=== PATIENT | female | born 1970 | race Caucasian/White ===

== ENCOUNTER 2016-06-30 06:22 | Emergency (ER) | payer BC ==
[2016-06-30] MEDS ORDERED: NS 0.9% 1000 ML* 1,000 ML IV ONE (06:54)
[2016-06-30] MEDS ORDERED: Simethicone TAB* 80 MG TAB.CHEW PO ONE (06:54)
[2016-06-30 07:09] LABS: Hematocrit 44 % (35-47); Hemoglobin 14.6 g/dl (12.0-16.0); Mean Corpuscular HGB Conc 34 g/dl (31-36); Mean Corpuscular Hemoglobin 31 pg (27-31); Mean Corpuscular Volume 91 fL (80-97); Mean Platelet Volume 10 um3 (7.4-10.4); Red Blood Count 4.77 10^6/ul (4.0-5.4); Red Cell Distribution Width 15 % (10.5-15); White Blood Count 5.7 10^3/ul (3.5-10.8)
[2016-06-30 07:20] LABS: BUN/Creatinine Ratio 11.1 (8-20); EGFR African American 98.8 (>60); EGFR Non-African American 76.8 (>60); Globulin 2.6 g/dL (2-4); Potassium 3.5 mmol/L (3.5-5.0); Total Bilirubin 0.8 mg/dL (0.2-1.0); Total Protein 6.6 g/dL (6.4-8.9)
--- NOTE | 2016-06-30 08:01 | ED ---
GI/ HPI - HPI Summary HPI Summary: Gastric bypass pt here w/ concern for dehydration. She had vomiting on Monday and diarrhea on Monday. [place] a little better Monday (tolerating PO's well) so went to work Monday and ate a [employer] rice meal - vomiting again. Has been drinking fluids (ie. sugar-free flavored water, G2, etc) - no nausea at this time. Feeling increased gassiness since sx started. Woke up this morning w / "cotton mouth" and CHOUDHARY. No fever, chills, chest pain, SOB, URI sx. Spoke w/ Dr. Zuluaga, gastric bypass surgeon, who warned pt of dehydration. She is here this morning as she was concerned about her sx upon waking. - History of Current Complaint Chief Complaint: EDAbdPain Time Seen by Provider: 06/30/16 06:42 Stated Complaint: POSS DEHYDRATION/DR SHIRA Hx Obtained From: Patient Pain Intensity: 4 - Additional Pertinent History Primary Care Physician: [id number] - Allergy/Home Medications Allergies/Adverse Reactions: Allergies Allergy/AdvReac Type Severity Reaction Status Date / Time Aspirin Allergy Bleeding Verified 04/19/16 08:51 Lactose Intolerance (GI) Allergy Unknown Verified 04/19/16 08:51 Reaction Details Latex Allergy Rash Verified 04/19/16 08:51 Shellfish Allergy Allergy Anaphylatic Verified 04/19/16 08:51 Shock BANDAIDS Allergy Rash Uncoded 04/19/16 08:51 ENVIRONMENT/SEASONAL HAYFEVER Allergy SNEEZING, Uncoded 04/19/16 08:51 RUNNY NOSE, ITCHY WATERY EYES PMH/Surg Hx/FS Hx/Imm Hx Previously Healthy: Yes Endocrine/Hematology History: Denies: Hx Anticoagulant Therapy, Hx Blood Disorders, Hx Diabetes, Hx Anemia Cardiovascular History: Reports: Hx Coronary Artery Disease - CHOLESTEROL CONTROL WITH MEDS, Hx Hypertension - hasn't needed meds since gastric bypass surgery 03/2016, Hx Peripheral Vascular Disease - VARICOSE VEIN CAUTERIZED- RIGHT LEG- 15+ YEARS AGO Denies: Hx Pacemaker/ICD, Other Cardiovascular Problems/Disorders Respiratory History: Reports: Hx Asthma GI History: Reports: Hx Gastroesophageal Reflux Disease - OCCASIONALLY- NO MEDICATION FOR, Hx Irritable Bowel - NO MEDS Denies: Hx Jaundice, Other GI Disorders History: Denies: Other Problems/Disorders Musculoskeletal History: Reports: Hx Arthritis - DDD-CERVICAL Denies: Other Musculoskeletal History Sensory History: Reports: Hx Contacts or Glasses - GLASSES FOR DRIVING Denies: Hx Hearing Aid Opthamlomology History: Reports: Hx Contacts or Glasses - GLASSES FOR DRIVING Neurological History: Reports: Hx Headaches, Hx Migraine - HX OF R/T DDD CERVICAL Denies: Other Neuro Impairments/Disorders Psychiatric History: Reports: Hx Anxiety - ON MEDICATION FOR, Hx Depression - ON MEDS - Surgical History Surgery Procedure, Year, and Place: 3 GANGLION RIGHT WRIST, 1993, 2003, 2012, [facility], [facility] [facility] [place] [facility] [place] [facility] [place] [facility] [place] Esophageal scope in prep for gastric bypass Hx Anesthesia Reactions: No Infectious Disease History: No Infectious Disease History: Denies: History Other Infectious Disease, Traveled Outside the [place] in Last 30 Days - Family History Known Family History: Positive: Hypertension Negative: Diabetes - Social History Alcohol Use: None - currently Alcohol Amount: h/o SOCIALLY Hx Substance Use: No Substance Use Type: Reports: None Smoking Status (MU): Former Smoker Type: Cigarettes Amount Used/How Often: 1/2 PPD FOR ABOUT 10+ YEARS Length of Time of Smoking/Using Tobacco: 10 YEARS OFF AND ON Have You Smoked in the Last Year: No Review of Systems Negative: Fever, Chills Eyes: Negative ENT: Negative Negative: Chest Pain Negative: Shortness Of Breath, Cough Gastrointestinal: Other - see HPI Positive: no symptoms reported Musculoskeletal: Negative Negative: Rash Positive: Headache - this morning Psychological: Normal All Other Systems Reviewed And Are Negative: Yes Physical Exam Triage Information Reviewed: Yes Vital Signs On Initial Exam: Initial Vitals Temp Pulse Resp BP Pulse Ox 97.3 F 69 20 133/90 99 06/30/16 06:24 06/30/16 06:24 06/30/16 06:24 06/30/16 06:24 06/30/16 06:24 Vital Signs Reviewed: Yes Appearance: Positive: Well-Appearing, No Pain Distress, Obese Skin: Positive: Warm, Dry Head/Face: Positive: Normal Head/Face Inspection Eyes: Positive: Normal, EOMI, Conjunctiva Clear - anicteric sclera ENT: Positive: Hearing grossly normal, Pharynx normal - corners of mouth with mild dryness Neck: Positive: Supple, Nontender Respiratory/Lung Sounds: Positive: Clear to Auscultation, Breath Sounds Present Cardiovascular: Positive: Normal, RRR. Negative: Tachycardia Abdomen Description: Positive: Nontender - mild generalized discomfort - no acute pain w/ palpation, no rebounding, Soft Bowel Sounds: Positive: Present Musculoskeletal: Positive: Normal, Strength/ROM Intact Neurological: Positive: Normal, Sensory/Motor Intact, Alert, Oriented to Person Place, Time, CN Intact II-III Psychiatric: Positive: Anxious Diagnostics - Vital Signs Vital Signs Temp Pulse Resp BP Pulse Ox 06/30/16 07:00 55 119/69 97 06/30/16 06:48 58 99 06/30/16 06:46 122/68 06/30/16 06:24 97.3 F 69 20 133/90 99 - Laboratory Lab Results: Lab Results 06/30/16 06/30/16 Range/Units 06:45 06:45 WBC 5.7 (3.5-10.8) 10^3/ul RBC 4.77 (4.0-5.4) 10^6/ul Hgb 14.6 (12.0-16.0) g/dl Hct 44 (35-47) % MCV 91 (80-97) fL MCH 31 (27-31) pg MCHC 34 (31-36) g/dl RDW 15 (10.5-15) % Plt Count 216 (150-450) 10^3/ul MPV 10 (7.4-10.4) um3 Neut % (Auto) 47.6 (38-83) % Lymph % (Auto) 41.0 (25-47) % [place] % (Auto) 8.6 (1-9) % Eos % (Auto) 1.8 (0-6) % Baso % (Auto) 1.0 (0-2) % Absolute Neuts (auto) 2.7 (1.5-7.7) 10^3/ul Absolute Lymphs (auto) 2.3 (1.0-4.8) 10^3/ul Absolute Monos (auto) 0.5 (0-0.8) 10^3/ul Absolute Eos (auto) 0.1 (0-0.6) 10^3/ul Absolute Basos (auto) 0.1 (0-0.2) 10^3/ul Absolute Nucleated RBC 0 10^3/ul Nucleated RBC % 0.1 Sodium 140 (133-145) mmol/L Potassium 3.5 (3.5-5.0) mmol/L Chloride 109 (101-111) mmol/L Carbon Dioxide 24 (22-32) mmol/L Anion Gap 7 (2-11) mmol/L BUN 9 (6-24) mg/dL Creatinine 0.81 (0.51-0.95) mg/dL Est GFR ( Amer) 98.8 (>60) Est GFR (Non-Af Amer) 76.8 (>60) BUN/Creatinine Ratio 11.1 (8-20) Glucose 87 (70-100) mg/dL Calcium 9.0 (8.6-10.3) mg/dL Total Bilirubin 0.80 (0.2-1.0) mg/dL AST 29 (13-39) U/L ALT 34 (7-52) U/L Alkaline Phosphatase 93 (34-104) U/L Total Protein 6.6 (6.4-8.9) g/dL Albumin 4.0 (3.2-5.2) g/dL Globulin 2.6 (2-4) g/dL Albumin/Globulin Ratio 1.5 (1-3) Lipase 24 (11.0-82.0) U/L Result Diagrams: 06/30/16 06:45 06/30/16 06:45 Lab Statement: Any lab studies that have been ordered have been reviewed, and results considered in the medical decision making process. Re-Evaluation - Re-Evaluation First Eval Change: Improved GIGU Course/Dx - Course Course Of Treatment: Gastric bypass pt presents w/ 3 day h/o intermittent vomiting, diarrhea. Vital signs and labs are unremarkable for significant pathology. IV fluids and simethicone provided. Encouraged additional PO fluids and to avoid diuretics as well as aspartame. She will slowly advance from clears to soft, low residual diet over the next week. F/u w/ [facility] if sx persist. Pt voices understanding and will return to ED as necessary. - Diagnoses Provider Diagnoses: Gastroenteritis Discharge - Discharge Plan Condition: Stable Disposition: HOME Patient Education Materials: Gastroenteritis (ED), Gastric Bypass Diet (GEN) Referrals: Joey Argueta NP [Primary Care Provider] - Lorne Zuluaga MD [Medical Doctor] - Additional Instructions: Continue clear fluids over the next 48 hours then advance to soft, low residual foods for the remainder of the week. Resume your gastric bypass diet as tolerated. Follow-up with Dr. Zuluaga next week. *If you develop fever, chills, vomiting, diarrhea, chest pain, difficulty breathing, abdominal pain, rectal bleeding, return to ED
[2016-06-30 09:33] VITALS: BP 123/72
== END 2016-06-30 09:33 | disposition home or self-care (01) ==
LOC: ED 06:22
DX: K52.9 Noninfective gastroenteritis and colitis, unspecified (principal); R11.10 Vomiting, unspecified; R19.7 Diarrhea, unspecified; R51 Headache; Z87.891 Personal history of nicotine dependence
CPT/HCPCS: 36415; 80053; 83690; 85025; 99283; A9270-GY

== ENCOUNTER 2017-06-15 12:46 | Emergency (ER) | payer BC ==
[2017-06-15] MEDS ORDERED: NS 0.9% 1000 ML* 1,000 ML IV ONE (15:16)
[2017-06-15] MEDS ORDERED: Famotidine IV* 10 MG/ML 2 ML (20 mg) IV ONE (15:16)
[2017-06-15 15:52] LABS: ABS Basophils 0 10^3/ul (0-0.2); ABS Eosinophils 0.1 10^3/ul (0-0.6); ABS Lymphocytes 2.5 10^3/ul (1.0-4.8); ABS Monocytes 0.4 10^3/ul (0-0.8); ABS Neutrophils 2.4 10^3/ul (1.5-7.7); ABS Nucleated RBC 0 10^3/ul; Eosinophil % 1.1 % (0-6); Hematocrit 39 % (35-47); Hemoglobin 13.3 g/dl (12.0-16.0); Lymphocyte % 46.4 % (25-47); Mean Corpuscular HGB Conc 34 g/dl (31-36); Mean Corpuscular Hemoglobin 31 pg (27-31); Mean Corpuscular Volume 91 fL (80-97); Mean Platelet Volume 9 um3 (7.4-10.4); Nucleated Red Blood Cells % 0; Platelet Count 247 10^3/ul (150-450); Red Blood Count 4.27 10^6/ul (4.0-5.4); Red Cell Distribution Width 14 % (10.5-15); White Blood Count 5.5 10^3/ul (3.5-10.8)
[2017-06-15 16:10] LABS: EGFR Non-African American 71.4 (>60)
[2017-06-15 16:49] LABS: Urine Appearance Cloudy; Urine Blood Negative (Negative); Urine Color Amber; Urine Ketones Trace (Negative); Urine Protein Negative (Negative); Urine Specific Gravity 1.023 (1.010-1.030); Urine Urobilinogen Negative (Negative)
[2017-06-15] MEDS ORDERED: Iohexol 300* (CONTRAST) 10 ML SDV IV ONE (16:59)
--- NOTE | 2017-06-15 18:11 | RAD ---
Indication: Abdominal pain. Contrast: Administered 139.2 ml of OMNIPAQUE 300 mg/ml CT of the abdomen and pelvis was performed after oral and IV contrast administration. Coronal and sagittal reconstructed images were obtained. Lung bases demonstrate no pleural fluid, nodules or masses. Heart is of normal size without evidence of pericardial effusion. Liver is normal in size. No focal lesions or intrahepatic duct dilatation is noted. The patient is status post cholecystectomy. Common duct is not dilated. The pancreas demonstrates no mass or pancreatic ductal dilatation. Patient status post gastric bypass surgery. Spleen is normal in size. No adrenal masses are noted. The kidneys demonstrate symmetric nephrograms without hydronephrosis. No retroperitoneal lymphadenopathy is noted. No dilated loops of bowel are noted. CT of the pelvis demonstrates appendix to be normal in size. No dilated loops of bowel are noted. The colon is filled with stool. The uterus and ovaries are grossly unremarkable. No hernias are identified. The urinary bladder is unremarkable. IMPRESSION: Patient status post gastric bypass surgery. No hernias are noted. The appendix is normal. No abnormal masses or fluid collections are identified. No evidence of intestinal obstruction is noted.
[2017-06-15 18:55] VITALS: BP 121/74
--- NOTE | 2017-06-16 08:25 | ED ---
Dennis Han Gabriel, scribed for Camilo Huggins MD on 06/15/17 at 1511 . Abdominal Pain/Female - HPI Summary HPI Summary: This patient is a 47 year old F presenting to [facility] with a chief complaint of ABD pain since this morning. The patient rates the pain 3/10 in severity. Patient reports increased belching for 14 months. Patient contacted her surgeon who recommend she come here for a full work up. Hx GERD. - History of Current Complaint Chief Complaint: EDAbdPain Stated Complaint: ABD PAIN/GASSY Time Seen by Provider: 06/15/17 15:03 Hx Obtained From: Patient Hx Last Menstrual Period: a few years ago. Onset/Duration: Still Present Timing: Constant Severity Initially: Mild Severity Currently: Mild Pain Intensity: 3 Pain Scale Used: 0-10 Numeric Location: Discrete At: RLQ Radiates: No Associated Signs and Symptoms: Positive: Other: - increased belching Allergies/Adverse Reactions: Allergies Allergy/AdvReac Type Severity Reaction Status Date / Time Aspirin Allergy Bleeding Verified 04/19/16 08:51 Lactose Intolerance (GI) Allergy Unknown Verified 04/19/16 08:51 Reaction Details Latex Allergy Rash Verified 04/19/16 08:51 Shellfish Allergy Allergy Anaphylatic Verified 04/19/16 08:51 Shock BANDAIDS Allergy Rash Uncoded 04/19/16 08:51 ENVIRONMENT/SEASONAL HAYFEVER Allergy SNEEZING, Uncoded 04/19/16 08:51 RUNNY NOSE, ITCHY WATERY EYES PMH/Surg Hx/FS Hx/Imm Hx Endocrine/Hematology History: Denies: Hx Anticoagulant Therapy, Hx Blood Disorders, Hx Diabetes, Hx Anemia Cardiovascular History: Reports: Hx Coronary Artery Disease - CHOLESTEROL CONTROL WITH MEDS, Hx Hypertension - hasn't needed meds since gastric bypass surgery 03/2016, Hx Peripheral Vascular Disease - VARICOSE VEIN CAUTERIZED- RIGHT LEG- 15+ YEARS AGO Denies: Hx Pacemaker/ICD, Other Cardiovascular Problems/Disorders Respiratory History: Reports: Hx Asthma GI History: Reports: Hx Gastroesophageal Reflux Disease - OCCASIONALLY- NO MEDICATION FOR, Hx Irritable Bowel - NO MEDS Denies: Hx Jaundice, Other GI Disorders History: Denies: Other Problems/Disorders Musculoskeletal History: Reports: Hx Arthritis - DDD-CERVICAL Denies: Other Musculoskeletal History Sensory History: Reports: Hx Contacts or Glasses - GLASSES FOR DRIVING Denies: Hx Hearing Aid Opthamlomology History: Reports: Hx Contacts or Glasses - GLASSES FOR DRIVING Neurological History: Reports: Hx Headaches, Hx Migraine - HX OF R/T DDD CERVICAL Denies: Other Neuro Impairments/Disorders Psychiatric History: Reports: Hx Anxiety - ON MEDICATION FOR, Hx Depression - ON MEDS - Cancer History Hx Chemotherapy: No Hx Radiation Therapy: No - Surgical History Surgery Procedure, Year, and Place: 3 GANGLION RIGHT WRIST, 1993, 2003, 2012, [facility] [facility] [place] [facility] [place] [facility] [place] [facility] [place] Esophageal scope in prep for gastric bypass Hx Anesthesia Reactions: No - Immunization History Date of Tetanus Vaccine: UTD Date of Influenza Vaccine: NO Infectious Disease History: No Infectious Disease History: Denies: History Other Infectious Disease, Traveled Outside the [place] in Last 30 Days - Family History Known Family History: Positive: Hypertension Negative: Diabetes - Social History Alcohol Use: Rare Alcohol Amount: h/o SOCIALLY Hx Substance Use: No Substance Use Type: Reports: None Smoking Status (MU): Former Smoker Type: Cigarettes Amount Used/How Often: 1/2 PPD FOR ABOUT 10+ YEARS Length of Time of Smoking/Using Tobacco: 10 YEARS OFF AND ON Have You Smoked in the Last Year: No Review of Systems Negative: Fever Positive: Abdominal Pain, Other - increased belching All Other Systems Reviewed And Are Negative: Yes Physical Exam - Summary Physical Exam Summary: VITAL SIGNS: Reviewed. GENERAL: ~Patient is an obese female who is lying comfortable in the stretcher. ~Patient is not in any acute respiratory distress. HEAD AND FACE: No signs of trauma. ~No ecchymosis, hematomas or skull depressions. No sinus tenderness. EYES: PERRLA, EOMI x 2, No injected conjunctiva, no nystagmus. EARS: Hearing grossly intact. Ear canals and tympanic membranes are within normal limits. MOUTH: Oropharynx within normal limits. NECK: Supple, trachea is midline, no adenopathy, no JVD, no carotid bruit, no c- spine tenderness, neck with full ROM. CHEST: Symmetric, no tenderness at palpation LUNGS: Clear to auscultation bilaterally. No wheezing or crackles. CVS: Regular rate and rhythm, S1 and S2 present, no murmurs or gallops appreciated. ABDOMEN: Soft, positive RUQ and epigastric tenderness.. No signs of distention. No rebound no guarding, and no masses palpated. Bowel sounds are normal. EXTREMITIES: FROM in all major joints, no edema, no cyanosis or clubbing. NEURO: Alert and oriented x 3. No acute neurological deficits. Speech is normal and follows commands. SKIN: Dry and warm Triage Information Reviewed: Yes Vital Signs On Initial Exam: Initial Vitals Temp Pulse Resp BP Pulse Ox 97.4 F 75 18 120/82 99 06/15/17 12:56 06/15/17 12:56 06/15/17 12:56 06/15/17 12:56 06/15/17 12:56 Vital Signs Reviewed: Yes Diagnostics - Vital Signs Vital Signs Temp Pulse Resp BP Pulse Ox 06/15/17 12:56 97.4 F 75 18 120/82 99 - Laboratory Lab Results: Lab Results 06/15/17 06/15/17 06/15/17 Range/Units 15:35 15:35 15:35 WBC 5.5 (3.5-10.8) 10^3/ul RBC 4.27 (4.0-5.4) 10^6/ul Hgb 13.3 (12.0-16.0) g/dl Hct 39 (35-47) % MCV 91 (80-97) fL MCH 31 (27-31) pg MCHC 34 (31-36) g/dl RDW 14 (10.5-15) % Plt Count 247 (150-450) 10^3/ul MPV 9 (7.4-10.4) um3 Neut % (Auto) 44.6 (38-83) % Lymph % (Auto) 46.4 (25-47) % [place] % (Auto) 7.3 (1-9) % Eos % (Auto) 1.1 (0-6) % Baso % (Auto) 0.6 (0-2) % Absolute Neuts (auto) 2.4 (1.5-7.7) 10^3/ul Absolute Lymphs (auto) 2.5 (1.0-4.8) 10^3/ul Absolute Monos (auto) 0.4 (0-0.8) 10^3/ul Absolute Eos (auto) 0.1 (0-0.6) 10^3/ul Absolute Basos (auto) 0 (0-0.2) 10^3/ul Absolute Nucleated RBC 0 10^3/ul Nucleated RBC % 0 Sodium 139 (133-145) mmol/L Potassium 3.9 (3.5-5.0) mmol/L Chloride 105 (101-111) mmol/L Carbon Dioxide 28 (22-32) mmol/L Anion Gap 6 (2-11) mmol/L BUN 14 (6-24) mg/dL Creatinine 0.86 (0.51-0.95) mg/dL Est GFR ( Amer) 91.8 (>60) Est GFR (Non-Af Amer) 71.4 (>60) BUN/Creatinine Ratio 16.3 (8-20) Glucose 81 (70-100) mg/dL Calcium 9.4 (8.6-10.3) mg/dL Magnesium 2.6 (1.9-2.7) mg/dL Total Bilirubin 0.40 (0.2-1.0) mg/dL AST 21 (13-39) U/L ALT 23 (7-52) U/L Alkaline Phosphatase 79 (34-104) U/L Total Creatine Kinase 81 (10-223) U/L C-Reactive Protein < 1.00 (< 5.00) mg/L B-Natriuretic Peptide 36 ( - 100) pg/mL Total Protein 6.1 L (6.4-8.9) g/dL Albumin 3.7 (3.2-5.2) g/dL Globulin 2.4 (2-4) g/dL Albumin/Globulin Ratio 1.5 (1-3) Amylase 17 L (29-103) U/L Lipase 34 (11.0-82.0) U/L Urine Color Urine Appearance Urine pH (5-9) Ur Specific [place] (1.010-1.030) Urine Protein (Negative) Urine Ketones (Negative) Urine Blood (Negative) Urine Nitrate (Negative) Urine Bilirubin (Negative) Urine Urobilinogen (Negative) Ur Leukocyte Esterase (Negative) Urine Glucose (Negative) Urine Ascorbic Acid (Negative) 06/15/17 Range/Units 15:38 WBC (3.5-10.8) 10^3/ul RBC (4.0-5.4) 10^6/ul Hgb (12.0-16.0) g/dl Hct (35-47) % MCV (80-97) fL MCH (27-31) pg MCHC (31-36) g/dl RDW (10.5-15) % Plt Count (150-450) 10^3/ul MPV (7.4-10.4) um3 Neut % (Auto) (38-83) % Lymph % (Auto) (25-47) % [place] % (Auto) (1-9) % Eos % (Auto) (0-6) % Baso % (Auto) (0-2) % Absolute Neuts (auto) (1.5-7.7) 10^3/ul Absolute Lymphs (auto) (1.0-4.8) 10^3/ul Absolute Monos (auto) (0-0.8) 10^3/ul Absolute Eos (auto) (0-0.6) 10^3/ul Absolute Basos (auto) (0-0.2) 10^3/ul Absolute Nucleated RBC 10^3/ul Nucleated RBC % Sodium (133-145) mmol/L Potassium (3.5-5.0) mmol/L Chloride (101-111) mmol/L Carbon Dioxide (22-32) mmol/L Anion Gap (2-11) mmol/L BUN (6-24) mg/dL Creatinine (0.51-0.95) mg/dL Est GFR ( Amer) (>60) Est GFR (Non-Af Amer) (>60) BUN/Creatinine Ratio (8-20) Glucose (70-100) mg/dL Calcium (8.6-10.3) mg/dL Magnesium (1.9-2.7) mg/dL Total Bilirubin (0.2-1.0) mg/dL AST (13-39) U/L ALT (7-52) U/L Alkaline Phosphatase (34-104) U/L Total Creatine Kinase (10-223) U/L C-Reactive Protein (< 5.00) mg/L B-Natriuretic Peptide ( - 100) pg/mL Total Protein (6.4-8.9) g/dL Albumin (3.2-5.2) g/dL Globulin (2-4) g/dL Albumin/Globulin Ratio (1-3) Amylase (29-103) U/L Lipase (11.0-82.0) U/L Urine Color [place] Urine Appearance Cloudy Urine pH 5.0 (5-9) Ur Specific [place] 1.023 (1.010-1.030) Urine Protein Negative (Negative) Urine Ketones Trace H (Negative) Urine Blood Negative (Negative) Urine Nitrate Negative (Negative) Urine Bilirubin Negative (Negative) Urine Urobilinogen Negative (Negative) Ur Leukocyte Esterase Negative (Negative) Urine Glucose Negative (Negative) Urine Ascorbic Acid * H (Negative) Result Diagrams: 06/15/17 15:35 06/15/17 15:35 Lab Statement: Any lab studies that have been ordered have been reviewed, and results considered in the medical decision making process. - CT CT ABD/Pelvis CT Interpretation Completed By: Radiologist - Patient status post gastric bypass surgery. No hernias are noted. The appendix is normal. No abnormal masses or fluid collections are identified. No evidence of intestinal obstruction is noted. ED physician has reviewed this radiology report. - EKG 16:39 Cardiac Rate: Bradycardia EKG Rhythm: Sinus Bradycardia - at 48 BPM EKG Interpretation: Diffuse ST abnormalities, no ST elevations. Abdominal Pain Fem Course/Dx - Course Course Of Treatment: This patient is a 47 year old F presenting to [facility] with a chief complaint of ABD pain since this morning. The patient rates the pain 3/10 in severity. Patient reports increased belching for 14 months. Patient contacted her surgeon who recommend she come here for a full work up. Hx GERD. CT ABD/Pelvis reveals, per radiologist, Patient status post gastric bypass surgery. No hernias are noted. The appendix. is normal. No abnormal masses or fluid collections are identified. No evidence of. intestinal obstruction is noted. Test results with no significant abnormalities. In the ED course the patient was given Pepcid. We discussed patient care with Dr Zuluaga and they recommended discharging with Prilosec and following up as needed. Patient will be discharged with prescription for Prilosec and follow up from Dr. Zuluaga in one week. The patient is agreeable with this plan. - Diagnoses Differential Diagnosis: Positive: Appendicitis, Bowel Obstruction, Constipation , Diverticulitis Provider Diagnoses: Epigastric pain - Provider Notifications Discussed Care Of Patient With: Lorne Zuluaga Time Discussed With Above Provider: 17:45 Discharge - Discharge Plan Condition: Stable Disposition: HOME Prescriptions: Omeprazole CAP* [Prilosec CAP* 20 MG] 20 mg PO BEDTIME #30 cap. Patient Education Materials: Omeprazole (By mouth), Epigastric Pain (ED) Referrals: Joey Argueta NP [Primary Care Provider] - Lorne Zuluaga MD [Medical Doctor] - 2 Weeks Additional Instructions: RETURN TO EMERGENCY DEPARTMENT FOR ANY NEW OR WORSENING SYMPTOMS The documentation as recorded by the Dennis monteiro Gabriel accurately reflects the service I personally performed and the decisions made by me, Camilo Huggins MD.
== END 2017-06-15 18:54 | disposition home or self-care (01) ==
LOC: ED 12:46
DX: R10.13 Epigastric pain (principal); F17.210 Nicotine dependence, cigarettes, uncomplicated; Z98.84 Bariatric surgery status; Z87.19 Personal history of other diseases of the digestive system; Z88.6 Allergy status to analgesic agent
CPT/HCPCS: 36415; 74177; 80053; 81003; 82150; 82550; 83690; 83735; 83880; 85025; 86140; 93005; 96361; 96374; 99283; Q9967

== ENCOUNTER 2019-01-04 15:39 | Emergency (ER) | payer BC, OTHER ==
--- OUTSIDE RECORDS SUMMARY | 2019-01-04 15:55 | XMS REPORT | Continuity of Care Document ---
:1970 External Reference #:[id number] Author Name Madelyn Sanchez Care Team Providers Name Role Phone Joey Argueta NP Care Team Information Test Preparation Tutor Unavailable Joey Argueta NP Primary Care Physician Unavailable Payers Date Identification Numbers Payment Provider Subscriber Effective: 2018 Policy Number: [id number] [facility] Clotilde Vesna Ward Group Number: [id number] [address] [address] PayID: [id number] [place] [address] Problems Active Problems Provider Date Uncomplicated asthma MELISSA Tejada Onset: 05/23/2018 Uncomplicated asthma MELISSA Tejada Onset: 03/01/2017 Allergy to seafood MELISSA Tejada Onset: 08/31/2016 Uncomplicated asthma Gareth Coles MD Onset: 06/15/2016 Allergic rhinitis Gareth Coles MD Onset: 06/15/2016 Allergic rhinitis due to pollen Gareth Coles MD Onset: 06/15/2016 Family History Date Family Member(s) Observation Comments General Environmental Allergies Social History Type Date Description Comments Sex Unknown Smoke-Free Home is smoke-free Pets several cats Pets 1 dog Tobacco Use Start: Unknown End: Unknown Former Cigarette Smoker Smoking Status Reviewed: 05/23/18 Former Cigarette Smoker Tobacco Use Start: Unknown End: Unknown Patient is a former smoker Allergies, Adverse Reactions, Alerts Active Allergies Reaction Severity Comments Date Latex 12/28/2015 Shellfish-Derived Products 05/30/2015 Aspirin 05/18/2004 Medications Active Medications SIG Qnty Indications Ordering Provider Date Ventolin HFA inhale 2 puffs by 16gm J45.40 Gareth Dangelo 05/23/2018 inhalation route MD Sanket 108(90Base) mcg/Act every 4 hours as Aerosol needed Zyrtec Allergy one tablet by 30tabs J30.1 Gareth Dangelo 09/11/2017 10mg mouth every MD Sanket Tablets evening Qnasl [place] Two Sprays 8.7units J30.1 Beka Valdez, 06/15/2016 80mcg/Act In Each Nostril RPA-C Aerosol Every Day Symbicort Inhale Two Puffs 10.2units Beka Valdez, 06/15/2016 By Mouth Twice A RPA-C 80-4.5mcg/Act Day Rinse Mouth Aerosol After Use Epipen 2-Madan Use as needed for 4units J30.1 Beka Valdez, 06/15/2016 severe allergic RPA-C 0.3mg/0.3ML reactions Solution Auto-Inject [facility] B-12 one SL daily Kendall Thaddeusirmasloan, 05/09/2016 5000mcg EPIC TRAINER Tablets Sub Fluoxetine HCL 1 tab po daily Min Arguetasloan, 04/21/2016 60mg EPIC TRAINER Tablets CBD Oil Unknown 25mg Nystatin apply to skin two Unknown times a day prn [id number]/GM Cream Multivitamin Adults 1 tab PO daily Unknown Tablets Biotin Maximum 1 cap PO daily Unknown Strength 5000mcg Capsules Caltrate 600+D Plus Unknown Minerals [id number] Chewtabs Vitamin D3 1 milliliters by Unknown mouth every day 5000Unit/ML Liquid History Medications Mupirocin applyto affected 44units Wandy Redman NP 09/11/2017 - 2% Ointment area twice a day 05/23/2018 for 5 days5 Xyzal Allergy 24HR Take 1 tablet po 30tabs J30.1 Gareth Dangelo 2016 - 5mg daily as needed. MD Sanket 09/11/2017 Tablets Xyzal take 2 teaspoon 296ml J30.1 Gareth Dangelo 06/15/2016 - 2.5mg/5ML Solution by mouth once a MD Sanket 03/01/2017 day as needed Cyclobenzaprine HCL 1-2 po tid for 60tabs Joey Argueta, 05/24/2013 - 5mg muscle spasm, EPIC TRAINER 06/15/2016 Tablets may cause drowsiness Ventolin HFA inhale two puffs 1units Wandy Redman NP 08/07/2012 - 108(90Base) by mouth every 4 09/11/2017 mcg/Act Aerosol hours as needed for wheeze Nasonex 2 sprays each 1units Lorne Cardenas MD 02/12/2007 - 50mcg/Act nostril daily 06/15/2016 Suspension for allergies Flintstones Complete 2 po qday Unknown - 03/01/2017 Keflex one tablet by Unknown - 500mg Capsules mouth twice a 05/23/2018 day x 10 days Immunizations CPT Code Status Date Vaccine Lot # 65022 Given 03/03/2013 Tetanus, Diphtheria Toxoids/Acellular Pertussis Vaccine 7 Or > [id number] Given 06/18/2009 Tetanus, Diphtheria Toxoids/Acellular Pertussis Vaccine 7 Or > [id number] Given 08/28/2000 MMR Vaccine, Live, For Subcutaneous Use 56081 Given 12/20/1999 Td Toxoids Adsorbed For Use 7Yrs Or Older For Intramuscular Use 38031 Refused 09/08/2015 Fluarix Quadrivalent, Preservative Free 0.5mL Vital Signs Date Vital Result Comment 12/19/2018 9:23am BP Systolic 131 mmHg BP Diastolic 71 mmHg Height 66.5 inches 5'6.50" Weight 242.38 lb BMI (Body Mass Index) 38.5 kg/m2 Heart Rate 82 /min Respiratory Rate 16 /min Body Temperature 97.8 F O2 % BldC Oximetry 96 % 05/23/2018 3:47pm BP Systolic 141 mmHg BP Diastolic 91 mmHg Height 66.5 inches 5'6.50" Weight 248.00 lb BMI (Body Mass Index) 39.4 kg/m2 Heart Rate 65 /min Respiratory Rate 16 /min O2 % BldC Oximetry 96 % 09/11/2017 2:06pm Height 66.5 inches 5'6.50" Weight 232.00 lb BMI (Body Mass Index) 36.9 kg/m2 Heart Rate 78 /min Respiratory Rate 18 /min Body Temperature 98.6 F O2 % BldC Oximetry 98 % 03/01/2017 9:30am BP Systolic 112 mmHg BP Diastolic 64 mmHg Height 66.5 inches 5'6.50" Weight 229.00 lb BMI (Body Mass Index) 36.4 kg/m2 Heart Rate 72 /min Respiratory Rate 16 /min O2 % BldC Oximetry 99 % 08/31/2016 4:03pm BP Systolic 116 mmHg BP Diastolic 80 mmHg Height 66.5 inches 5'6.50" Weight 246.00 lb BMI (Body Mass Index) 39.1 kg/m2 Heart Rate 72 /min Respiratory Rate 9 /min Body Temperature 97.8 F O2 % BldC Oximetry 96 % 06/15/2016 10:18am BP Systolic 112 mmHg BP Diastolic 77 mmHg Height 66.5 inches 5'6.50" Weight 272.00 lb BMI (Body Mass Index) 43.2 kg/m2 Heart Rate 67 /min Respiratory Rate 16 /min Body Temperature 96.7 F O2 % BldC Oximetry 95 % 05/09/2016 4:11pm BP Systolic 130 mmHg BP Diastolic 86 mmHg Weight 289.00 lb Heart Rate 63 /min Respiratory Rate 18 /min Body Temperature 98.1 F O2 % BldC Oximetry 98 % Results Test Date Facility Test Result H/L Range Note Order 06/15/2016 [facility] Epinephrine <pending> Injector Training Laboratory test 04/28/2016 N2N/CCD Import Cytology Non-Clinical Editor See Result 1 finding Below 1 SEE RESULT BELOW Name: VESNA WARD : [address]: Logan Land MD Acct: [id number] Unit: [id number] AGE: 45 Location: THYROID Re04/28/16 SEX: F Status: REG REF SPEC: [id number] VERNON: 04/28/16-[address]: Esthela Crisostomo MD REQ: [id number] RECD: 04/28/16 STATUS: SUSANA KHAN DR: Logan Argueta EPIC TRAINER _ ORDERED: FN ASP DEEP, FNA Imme St Add, FNA IMMEDIATE S FINAL DIAGNOSIS Thyroid, right inferior, Ultrasound guided, fine needle aspiration: --Benign thyroid nodule- involutional type ([place] Class II). The specimen demonstrates moderate watery proteinaceous fluid, a modest amount of benign appearing follicular epithelium arranged in uniform sheets, medium sized follicles and only occasional small groups. Abundant pigmented and non-pigmented macrophages are seen in the background. No features of papillary carcinoma are seen. In this clinical setting the risk of malignancy is less than 3%. Clinical management of this thyroid nodule should be based on clinical and radiographic features as well as the above findings. THYROID RIGHT - US GUIDED FINE NEEDLE ASPIRATION RIGHT INFERIOR THYROID CLINICAL HISTORY Right inferior thyroid nodule 2.5 x 2.1 x 2.1 cm CONTINUED ON NEXT PAGE * ML = Testing performed at Main Lab DEPARTMENT OF PATHOLOGY, [address] [place] [address] Levi Graham M.D. Director [facility] # [id number] RUN DATE: 04/28/16 [facility] LIVE PAGE 2 Patient: VESNA WARD [id number] (Continued) IMMEDIATE INTERPRETATION (Continued) IMMEDIATE INTERPRETATION Pass 1-adequate GROSS DESCRIPTION 6- alcohol fixed slide(s) 2 - passes Signed (signature on file) Chiara Galvan MD 01/04 1227 END OF REPORT * ML = Testing performed at Main Lab DEPARTMENT OF PATHOLOGY, [address] [place] [address] Levi Graham M.D. Director [facility] # [id number] Procedures Date Code Description Status 05/23/2018 19168 Nitric Oxide Gas Determination Completed 05/23/2018 68649 Bronchodilation Responsiveness Spirometry Pre/Post Completed Bronchodil Adm 09/11/2017 22403 Nitric Oxide Gas Determination Completed 09/11/2017 35276 Nitric Oxide Gas Determination Completed 09/11/2017 89176 Bronchodilation Responsiveness Spirometry Pre/Post Completed Bronchodil Adm 09/11/2017 83635 Bronchodilation Responsiveness Spirometry Pre/Post Completed Bronchodil Adm 03/01/2017 80794 Nitric Oxide Gas Determination Completed 03/01/2017 02156 Bronchodilation Responsiveness Spirometry Pre/Post Completed Bronchodil Adm 09/07/2016 86154 Allergy Antigens Single Or Multiple Completed 08/31/2016 4 Unpaid Co-Pay Service Fee Completed 06/15/2016 40987 Education/Training PT Self-Management Each 30Minutes Indiv Completed PT 06/15/2016 64940 Nitric Oxide Gas Determination Completed 06/15/2016 13525 Allergy Tests Percutaneous W/ Allergenic Extracts Completed 06/15/2016 96577 Bronchodilation Responsiveness Spirometry Pre/Post Completed Bronchodil Adm Encounters Type Date Location Provider Dx Diagnosis Office Visit 05/23/2018 Phi Singh J45.40 Moderate persistent 3:30p [place], asthma, uncomplicated RPA-C J30.1 Allergic rhinitis due to pollen J30.89 Other allergic rhinitis Z91.013 Allergy to seafood Office Visit 09/11/2017 2:00p Phi Redman NP Z91.013 Allergy to seafood J30.89 Other allergic rhinitis J45.40 Moderate persistent asthma, uncomplicated J30.1 Allergic rhinitis due to pollen Office Visit 03/01/2017 9:00a Phi Singh J45.40 Moderate persistent [place], RPA-C asthma, uncomplicated J30.1 Allergic rhinitis due to pollen J30.89 Other allergic rhinitis Z91.013 Allergy to seafood Office Visit 08/31/2016 3:45p Phi Singh J45.40 Moderate persistent [place]st[place]acher, RPA-C asthma, uncomplicated J30.1 Allergic rhinitis due to pollen J30.89 Other allergic rhinitis Z91.013 Allergy to seafood Office Visit 06/15/2016 10:00a Phi Coles J30.1 Allergic rhinitis MD due to pollen J30.89 Other allergic rhinitis J45.40 Moderate persistent asthma, uncomplicated Plan of Treatment 05/23/2018 - Oxana Singh Fenstermacher, RPA-CJ45.40 Moderate persistent asthma, uncomplicatedNew Medication:Ventolin HFA 108(90 Base) mcg/Act - inhale 2 puffs by inhalation route every 4 hours as neededComments:Patient with stable asthma. Today's PFT is within normal limits. NIOX is 16ppb. Continue Symbicort 80/4.5 as prescribed. Continue Ventolin as needed for breakthrough asthma symptoms.Follow up:6 months - w/PFT and NIOX prior to csolzK48.1 Allergic rhinitis due to pollenComments:Allergic rhinitis well controlled. Continue Qnasl and Zyrtec as prescribed. Patient is unable to begin immunotherapy due to cost. She will contact the office if she decides to pursue this treatment option in the future.Follow up:6 months.J30.89 Other allergic rhinitisComments: Continue environmental controls for dust, dust mites and pets.Z91.013 Allergy to seafoodComments:Continue strict lifetime avoidance of shellfish. Continue to carry EpiPen at all times.
--- OUTSIDE RECORDS SUMMARY | 2019-01-04 15:55 | XMS REPORT | Continuity of Care Document ---
:1970 External Reference #:[id number] Author Name Wandy Redman NP (transmitted by agent of provider Gareth Coles) Address [address] [place] [address] Care Team Providers Name Role Phone Joey Argueta NP - Nurse Care Team Information Tailercpa [phone] Practitioner Problems Active Problems Provider Date Uncomplicated asthma MELISSA Tejada Onset: 05/23/2018 Uncomplicated asthma MELISSA Tejada Onset: 03/01/2017 Allergy to seafood MELISSA Tejada Onset: 08/31/2016 Uncomplicated asthma Gareth Coles MD Onset: 06/15/2016 Allergic rhinitis Gareth Coles MD Onset: 06/15/2016 Allergic rhinitis due to pollen Gareth Coles MD Onset: 06/15/2016 Social History Type Date Description Comments Sex Unknown Tobacco Use Start: Unknown End: Unknown Former Cigarette Smoker Smoking Status Reviewed: 05/23/18 Former Cigarette Smoker Tobacco Use Start: Unknown End: Unknown Patient is a former smoker Allergies, Adverse Reactions, Alerts Active Allergies Reaction Severity Comments Date Latex 12/28/2015 Shellfish-Derived Products 05/30/2015 Aspirin 05/18/2004 Medications Active Medications SIG Qnty Indications Ordering Provider Date Fexofenadine HCL take 1 tablet by 30tabs Wandy Redman NP 12/19/2018 mouth every day 180mg Tablets as needed Ventolin HFA inhale 2 puffs by 16gm J45.40 Gareth Dangelo 05/23/2018 inhalation route MD Sanket 108(90Base) mcg/Act every 4 hours as Aerosol needed Qnasl [place] Two Sprays 8.7units J30.1 José Miguel, Beka, 06/15/2016 80mcg/Act In Each Nostril RPA-C Aerosol Every Day Symbicort Inhale Two Puffs 10.2units Beka Valdez, 06/15/2016 By Mouth Twice A RPA-C 80-4.5mcg/Act Day Rinse Mouth Aerosol After Use Epipen 2-Madan Use as needed for 4units J30.1 Wandy Redman NP 06/15/2016 severe allergic 0.3mg/0.3ML reactions Solution Auto-Inject [facility] B-12 one SL daily Joey Argueta, 05/09/2016 5000mcg PAPER MACHINE BACK TENDER Tablets Sub Fluoxetine HCL 1 tab po daily Joey Argueta, 04/21/2016 60mg PAPER MACHINE BACK TENDER Tablets Vitamin D3 1 milliliters by Unknown mouth every day 5000Unit/ML Liquid Caltrate 600+D Plus Unknown Minerals [id number] Chewtabs Biotin Maximum 1 cap PO daily Unknown Strength 5000mcg Capsules Multivitamin Adults 1 tab PO daily Unknown Tablets Nystatin apply to skin two Unknown times a day prn [id number]/GM Cream CBD Oil Unknown 25mg Immunizations CPT Code Status Date Vaccine Lot # 28930 Given 03/03/2013 Tetanus, Diphtheria Toxoids/Acellular Pertussis Vaccine 7 [place] > 87511 Given 06/18/2009 Tetanus, Diphtheria Toxoids/Acellular Pertussis Vaccine 7 Or > 60117 Given 08/28/2000 MMR Vaccine, Live, For Subcutaneous Use 34715 Given 12/20/1999 Td Toxoids Adsorbed For Use 7Yrs Or Older For Intramuscular Use 39075 Refused 09/08/2015 Fluarix Quadrivalent, Preservative Free 0.5mL [...] /min O2 % BldC Oximetry 96 % Results Description No Information Available Procedures Date Code Description Status 12/19/2018 57839 Nitric Oxide Gas Determination Completed 12/19/2018 78185 Bronchodilation Responsiveness Spirometry Pre/Post Completed Bronchodil Adm Medical Devices Description No Information Available Encounters Type Date Location Provider Dx Diagnosis Office Visit 12/19/2018 [place] Wandy Redman NP J45.40 Moderate persistent 9:30a asthma, uncomplicated J30.1 Allergic rhinitis due to pollen Z91.013 Allergy to seafood Assessments Date Code Description Provider 12/19/2018 J45.40 Moderate persistent asthma, uncomplicated Wandy Redman NP 12/19/2018 J30.1 Allergic rhinitis due to pollen Wandy Redman NP 12/19/2018 Z91.013 Allergy to seafood Wandy Redman NP Plan of Treatment Future Appointment(s):06/21/2019 9:30 am - Wandy Redman NP at [id number] - Wandy Redman NPJ45.40 Moderate persistent asthma, uncomplicatedComments :PFT today revealed FEV1 98%, FEV1/FVC 106%, and [id number] 102%, post test 112%, 105%, 120% respectfully. NiOx 15PPB.Patient is doing well with no reported breakthrough symptoms, with no use of her rescueinhaler. She is tolerating the medications with no adverse side effect.Continue current medical plan.Follow up in six months.J30.1 Allergic rhinitis due to sjchzaQ84.013 Allergy to seafoodComments:Renewed Epipen. No accidental exposures. Functional Status Description No Information Available Mental Status Description No Information Available Referrals Description No Information Available
[2019-01-04 16:10] VITALS: BP 141/78
--- NOTE | 2019-01-04 16:40 | UC ---
Skin Complaint HPI - HPI Summary HPI Summary: 48-year-old woman comes in with a chief complaint of pain and redness of the left anterior lower leg. Patient struck that area of her leg on December. Had pain right away. Now redness is appearing. No fevers or chills. Pain is worse with palpation. - History of Current Complaint Chief Complaint: UCLowerExtremity Time Seen by Provider: 01/04/19 16:34 Stated Complaint: SKIN IRRITATION ON LEG Hx Last Menstrual Period: merena Pain Intensity: 7 - Allergy/Home Medications Allergies/Adverse Reactions: Allergies Allergy/AdvReac Type Severity Reaction Status Date / Time aspirin Allergy Bleeding Verified 01/04/19 16:19 lactose Allergy GI Upset Verified 01/04/19 16:20 latex Allergy Rash Verified 01/04/19 16:20 shellfish derived Allergy Anaphylatic Verified 01/04/19 16:20 Shock BANDAIDS Allergy Rash Uncoded 04/19/16 08:51 ENVIRONMENT/SEASONAL HAYFEVER Allergy SNEEZING, Uncoded 04/19/16 08:51 RUNNY NOSE, ITCHY WATERY EYES Home Medications: Home Medications Beclomethasone 80 MCG MDI(NF) [Qvar 80 MCG MDI(NF)] 01/04/19 [History] Budesonide/Formote 80/4.5(NF) [Symbicort 80/4.5 (NF)] 01/04/19 [History] Fexofenadine (NF) [Shala 180 (NF)] 01/04/19 [History] PMH/Surg Hx/FS Hx/Imm Hx Previously Healthy: Yes Respiratory History: Asthma GI/ History: Gastroesophageal Reflux Other History Of: Negative For: Anticoagulant Therapy - Surgical History Surgical History: Yes Surgery Procedure, Year, and Place: 3 GANGLION RIGHT WRIST, 1993, 2003, 2012, [facility], [facility] [place], [facility]. GALLBLADDER, [facility] [place], 2007. RUFINA BREAST REDUCTION, 1997, [facility] [place]. Esophageal scope in prep for gastric bypass - Family History Known Family History: Positive: Hypertension Negative: Diabetes - Social History Alcohol Use: Rare Alcohol Amount: h/o SOCIALLY Substance Use Type: None Smoking Status (MU): Former Smoker Type: Cigarettes Amount Used/How Often: 1/2 PPD FOR ABOUT 10+ YEARS Length of Time of Smoking/Using Tobacco: 10 YEARS OFF AND ON Have You Smoked in the Last Year: No When Did the Patient Quit Smoking/Using Tobacco: 2011 Household Exposure Type: Cigarettes - Immunization History Most Recent Influenza Vaccination: NONE Most Recent Tetanus Shot: UNSURE Most Recent Pneumonia Vaccination: NONE Review of Systems All Other Systems Reviewed And Are Negative: Yes Constitutional: Positive: Negative Skin: Positive: Other - SEE HPI Eyes: Positive: Negative ENT: Positive: Negative Respiratory: Positive: Negative Cardiovascular: Positive: Negative Gastrointestinal: Positive: Negative Motor: Positive: Negative Neurovascular: Positive: Negative Musculoskeletal: Positive: Negative Neurological: Positive: Negative Psychological: Positive: Negative Is Patient Immunocompromised?: No Physical Exam Triage Information Reviewed: Yes Appearance: Well-Appearing, No Pain Distress, Well-Nourished Vital Signs: Initial Vital Signs Temp 97.7 F 01/04/19 16:04 Pulse 71 01/04/19 16:04 Resp 16 01/04/19 16:04 BP 141/78 01/04/19 16:04 Pulse Ox 98 01/04/19 16:04 Vital Signs Reviewed: Yes Eye Exam: Normal Eyes: Positive: Conjunctiva Clear Neck: Positive: Supple Respiratory: Positive: No respiratory distress Musculoskeletal: Positive: Strength Intact, ROM Intact Neurological: Positive: Alert, Muscle Tone Normal Psychological: Positive: Age Appropriate Behavior Skin: Positive: Other - Left anterior lower leg has a 8 cm diameter area of erythema. Is warm to touch and blanches. No streaking. Normal sensation. Course/Dx - Course Course Of Treatment: The area is consistent with cellulitis. Patient cannot take nonsteroidal anti- inflammatories therefore she can take Tylenol as needed for the pain. And also put cool compresses If helpful. Can start the patient on Keflex 500 mg by mouth 4 times a day. Patient will get reevaluated if worse or any questions or concerns. - Diagnoses Provider Diagnosis: Cellulitis of left anterior lower leg Discharge - Sign-Out/Discharge Documenting (check all that apply): Patient Departure All imaging exams completed and their final reports reviewed: No Studies - Discharge Plan Condition: Stable Disposition: HOME Prescriptions: Cephalexin CAP* [Keflex CAP*] 500 mg PO QID #40 cap Patient Education Materials: Cellulitis (ED) Referrals: Joey Argueta INDUSTRIAL CONVEYOR BELT REPAIRER [Primary Care Provider] - Additional Instructions: FOLLOW UP WITH YOUR DOCTOR IF NOT COMPLETELY IMPROVED. GET RECHECKED SOONER IF YOUR CONDITION WORSENS; FEVER, SPREAD OF INFECTION, YOU FEEL ILL OR ANY QUESTIONS OR CONCERNS. - Billing Disposition and Condition Condition: STABLE Disposition: Home
== END 2019-01-04 17:01 | disposition home or self-care (01) ==
LOC: UCEAST 15:39
DX: L03.116 Cellulitis of left lower limb (principal); J45.909 Unspecified asthma, uncomplicated; K21.9 Gastro-esophageal reflux disease without esophagitis; Z87.891 Personal history of nicotine dependence; Z91.040 Latex allergy status
CPT/HCPCS: 99212; G0463